=== PATIENT | male | born 1975 | race Caucasian/White ===

== ENCOUNTER → 2021-06-02 | Outpatient (CLI) | payer OTHER | LOC: KOH-I 16:09 | DX: M25.511 Pain in right shoulder (principal); M19.011 Primary osteoarthritis, right shoulder; M67.813 Other specified disorders of tendon, right shoulder; S43.431A Superior glenoid labrum lesion of right shoulder, initial encounter | CPT/HCPCS: 73221 ==

== ENCOUNTER 2021-12-15 10:34 | Emergency (ER) | payer OTHER ==
[2021-12-15] MEDS ORDERED: MEDROL DOSEPAK 24 MG PO (16:29)
[2021-12-15] MEDS ORDERED: ROBAXIN 750 MG750 MG GT (16:29)
== END 2021-12-15 17:00 | disposition home or self-care (01) ==
LOC: ER1 10:34
DX: M54.12 Radiculopathy, cervical region (principal); M54.18 Radiculopathy, sacral and sacrococcygeal region; F17.210 Nicotine dependence, cigarettes, uncomplicated; I10 Essential (primary) hypertension
CPT/HCPCS: 72040; 73030; 96374; 99283; J1885; J2800

== ENCOUNTER → 2022-02-23 | Outpatient (CLI) | payer OTHER ==
[~2022-02-23] MED LIST: MEDROL DOSEPAK 24 MG PO; ROBAXIN 750 MG750 MG GT
== END ==
LOC: KOH-I 02-22 16:30
DX: M50.223 Other cervical disc displacement at C6-C7 level (principal); M48.02 Spinal stenosis, cervical region
CPT/HCPCS: 72141